=== PATIENT | female | born 1975 | race Two or more races ===

== ENCOUNTER → 2017-09-11 | Outpatient (CLI) | payer BC ==
--- NOTE | 2017-09-11 12:57 | EST ---
EXERCISE STRESS DATE OF SERVICE: 09/11/2017 AGE: 42 SEX: Female HT: 65" WT: 140 pounds PROTOCOL: Ludwig STAGE: III DURATION OF EXERCISE: 10 minutes HEART RATE REST: 98 BLOOD PRESSURE REST: 130/98 MAXIMUM HEART RATE ACHIEVED: 173 MAXIMUM BLOOD PRESSURE: 184/95 85% MPHR: 152 100% MPHR: 179 METS: 11.7 INDICATIONS: Chest pain. CLINICAL INFORMATION: The patient was exercised for total period of 10 minutes. Peak heart rate of 173 was achieved, maximum blood pressure of 184/95 mmHg was noted. The resting EKG shows normal sinus rhythm with normal IA interval and QRS duration and normal ST-T waves. No ST-segment depression suggestive of ischemia is noted. No dysrhythmias are noted. FINAL IMPRESSION: 1. This exercise test is not suggestive of ischemia. 2. Patient's exercise tolerance is normal. 3. No dysrhythmias are noted. MMODL / IJN: [id number] /
== END | disposition home or self-care (01) ==
LOC: RADNMMAIN 10:59
PROVIDERS: ATTEND Family Medicine
DX: R07.9 Chest pain, unspecified (principal); Z88.5 Allergy status to narcotic agent
CPT/HCPCS: 93017

== ENCOUNTER 2017-09-26 08:34 | Day surgery (SDC) | payer BC ==
[2017-09-20 10:37] VITALS: BMI 22.9
[~2017-09-26 08:34] MED LIST: LACTATED RINGERS 1,000 ML IV SCH
[2017-09-26] MEDS ORDERED: PROPOFOL 10 MG/ML 20 ML VIAL IV ONE (10:01)
[2017-09-26 10:02] VITALS: TEMP 98.3
--- NOTE | 2017-09-26 10:20 | P.PCN ---
Date of Procedure: 09/26/17 Procedure(s) Performed: Procedure: Esophagogastroduodenoscopy and biopsy. Preoperative diagnosis: Epigastric pain and history of reflux. Postoperative diagnosis: 1. Very small sliding hiatal hernia with no obvious esophagitis or complicated reflux disease. 2. Mild antral gastritis. 3. Multiple biopsies obtained from the duodenum, antrum and esophagus. Preparation sedation: Was provided by anesthesia. Brief clinical history: The patient is a 42-year-old female who I have evaluated in the office earlier this month regarding epigastric pains and atypical chest pains off around 2 months duration. The patient has chronic reflux and has been taking acid suppressive therapy for several years prior to the onset of her symptoms. At this time, she is taking PPI, H2 blockers and Carafate and is still symptomatic. She had cholecystectomy in 2010 for cholelithiasis. Procedure: With the patient on her left lateral decubitus position and after informed consent and adequate sedation, I passed the Olympus-GIF 160 video upper endoscope through the cricopharyngeus down the esophagus. GE junction was at 39 cm from the incisors and there was a very small sliding hiatal hernia. The esophagus did not show any obvious esophagitis or complicated reflux disease. The endoscope was then passed into the stomach which was insufflated with air and inspected in detail including the retroflex view in the cardia. There was some mottling and erythema in the antrum but no ulcers or erosions. Pyloric channel, duodenal bulb, post bulbar area and descending duodenum appeared within normal limits. Because of her symptoms, I obtained biopsies from the duodenum, antrum and esophagus then the endoscope was withdrawn. The patient tolerated the procedure well. Plan: The patient was reassured. Will await biopsy results. I will make further recommendations based on her course and biopsy results. I will keep you updated on her progress.
[2017-09-26 10:53] VITALS: BP 130/87; PULSE 77; RESP 18
== END 2017-09-26 10:59 | disposition home or self-care (01) ==
LOC: ORWHC2ENDO 08:34
DX: K21.0 Gastro-esophageal reflux disease with esophagitis (principal); K44.9 Diaphragmatic hernia without obstruction or gangrene; K29.50 Unspecified chronic gastritis without bleeding; Z90.49 Acquired absence of other specified parts of digestive tract; M19.90 Unspecified osteoarthritis, unspecified site; Z79.899 Other long term (current) drug therapy; Z88.5 Allergy status to narcotic agent
CPT/HCPCS: 81025; 88305; 88342; 43239; J2704

== ENCOUNTER 2022-04-15 10:57 | Day surgery (SDC) | payer OTHER ==
[~2022-04-15 10:57] MED LIST changes: +DEXAMETHASONE SOD PHOSPHATE 4 MG/ML 1 ML VIAL IV ONE; +HYDROmorphone 0.5 MG/0.5 ML SYRINGE IVP PRN; +LIDOCAINE 1% (10MG/ML) FOR IV START INTRADERMA PRN; +MIDAZOLAM 2 MG/2 ML VIAL IV PRN; +ONDANSETRON 4 MG/2 ML VIAL IVP ONE; +Pre Op ABX Message 1 EACH MISC MISCELLANE ONE
[2022-04-15 11:39] VITALS: TEMP 97.5
[2022-04-15] MEDS ORDERED: fentaNYL (PF) 50 MCG/ML 2 ML AMP ONE (13:11)
[2022-04-15] MEDS ORDERED: PROPOFOL 10 MG/ML 20 ML VIAL IV ONE (13:11)
[2022-04-15] MEDS ORDERED: MIDAZOLAM 2 MG/2 ML VIAL ONE (13:11)
[2022-04-15] MEDS ORDERED: LIDOCAINE 2% INJ 20 MG/ML (2 ML VIAL) ONE (13:11)
[2022-04-15] MEDS ORDERED: SUCCINYLCHOLINE CHLORIDE 100 MG/5 ML SYR IV ONE (13:11)
[2022-04-15] MEDS ORDERED: BUPIVACAINE (PF) 0.25% 30 ML VIAL SQ ONE (13:30)
[2022-04-15] MEDS ORDERED: LACTATED RINGERS 1,000 ML IV ONE ×2 (14:05)
[2022-04-15] MEDS ORDERED: SCOPOLAMINE 1 MG/72 HR PATCH TRANSDERM ONE (15:12)
[2022-04-15] MEDS ORDERED: HYDROmorphone 0.5 MG/0.5 ML SYRINGE IVP ONE (15:12)
--- NOTE | 2022-04-15 15:25 | P.OP ---
Date of Procedure: 04/15/22 Preoperative Diagnosis: 1. 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 Subluxation of the first metatarsal phalangeal joint right foot 2. Avascular necrosis medial sesamoid first MPJ right foot Procedure(s) Performed: 1. Open repair dislocated first metatarsal phalangeal joint right foot 2. Excision of medial sesamoid right foot Implants: Arthrex internal brace Anesthesia: JIMA Surgeon: Shayne Banda Estimated Blood Loss (ml): 2 Pathology: none sent Condition: stable Disposition: PACU Description of Procedure: The patient was brought into the operating room and placed on table supine position. Timeout was taken to confirm correct patient identifiers, correct laterality of surgery, and correct procedure. When all staff in the room were in agreement with the timeout, the patient was induced and placed under general anesthesia. A well-padded tourniquet was placed on the right ankle The right ankle block was then performed utilizing 20 mL of 0.25% Marcaine. The right foot was then prepped and draped in usual manner. The right leg was exsanguinated and the tourniquet inflated to 250 mmHg. attention was directed over the medial aspect of the first metatarsal phalangeal joint. A linear incision was made between the neurovascular structures on the medial aspect of the joint. The incision was deepened down to the subcutaneous tissue careful to identify, avoid, and retract any neurovascula r structures and cauterize any bleeding vessels. Blunt dissection was continued through the saphenous layer dorsally and plantarly to expose the entirety of the joint. An L-shaped capsulotomy was performed through the first metatarsal phalangeal joint. A short arm of the L from the medial aspect of the capsule and the long arm of the plantar medial aspect of the capsule near the medial sesamoid. The medial sesamoid was identified and carefully dissected free from the surrounding soft tissue. Inspection deep into the surgical site, showed the flexor hallucis longus tendon mobile and intact. A small wedge of the capsule from the incision was removed on the medial aspect to help facilitate retightening upon closure. Also of note there was abnormal thickening of the medial joint capsule indicating damage to the joint capsule contributing to the partial subluxation. The wound is thoroughly irrigated. With the great toe held into corrected position the joint capsule was repaired with 0 Vicryl. Then under fluoroscopic visualization guidewires for the small internal brace were placed on the medial side of the base of the proximal phalanx the great toe in the medial side of the first metatarsal proximal to the neck. Fluoroscopy confirmed proper positioning of the wires. The overdrill over the wire was complete and the wire drill bits removed. The first anchor was placed in the distal phalanx with the attached suture. And then again with the toe held in a corrected position the suture was aligned with the drill hole the first metatarsal, the tip of the anchor engaged the suture and then was impacted into the drill hole. The anchor was and advanced until it naturally released from the hide mill worker. One arm of the suture was then plaster distal and plantar just across the metatarsal phalangeal joint repair. Once it was brought through was then tied with the other portion suture which appeared the plantar aspect and prevent any dorsal contracture of the joint. The wound is then thoroughly irrigated with normal saline. Subcutaneous closure was done with 4-0 Monocryl and skin closure was done with 4-0 Stratafix in a running subcuticular manner. Dermal glue was applied over the incision and allowed to dry. Steri-Strips are placed over the incision then covered with an Arthrex jumpstart dressing, and then a dry sterile dressing. The tourniquet was released and capillary refill return to all digits on the right foot. The patient tolerated the above procedure and anesthesia well. Patient was taken recovery with vital signs stable.
[2022-04-15 15:54] VITALS: RESP 18
[2022-04-15 16:00] VITALS: BP 122/89; PULSE 71
== END 2022-04-15 16:25 | disposition home or self-care (01) ==
LOC: OR 10:57
PROVIDERS: ATTEND Podiatrist
DX: S93.141A Subluxation of metatarsophalangeal joint of right great toe, initial encounter (principal); M89.8X7 Other specified disorders of bone, ankle and foot; M87.874 Other osteonecrosis, right foot; Z88.5 Allergy status to narcotic agent; J45.909 Unspecified asthma, uncomplicated; F17.210 Nicotine dependence, cigarettes, uncomplicated; K21.9 Gastro-esophageal reflux disease without esophagitis; Z79.899 Other long term (current) drug therapy; D64.9 Anemia, unspecified; Z97.3 Presence of spectacles and contact lenses; Z83.3 Family history of diabetes mellitus; Z82.49 Family history of ischemic heart disease and other diseases of the circulatory system; Z98.890 Other specified postprocedural states; E89.0 Postprocedural hypothyroidism; Z98.891 History of uterine scar from previous surgery; Z98.51 Tubal ligation status
CPT/HCPCS: 28315; 28645; 81025; C1713; J2250; J1100; J0690; J2405; J3010; J0330; J2704; J1170; J2001